=== PATIENT | female | born 1995 | race African-American/Black ===

== ENCOUNTER 2017-07-24 15:19 | Emergency (ER) | payer BC ==
[~2017-07-24] VITALS: Ht 167.6 cm; Wt 60.8 kg
[2017-07-24 15:24] VITALS: Ht 167.6 cm; Wt 60.8 kg
[2017-07-24] MEDS ORDERED: IBUP-103 PO (15:55)
[2017-07-24] MEDS ORDERED: FLUCONAZOLE 100 MG TAB PO SCH (16:15)
[2017-07-24 16:25] LABS: URINE APPEARANCE CLEAR (CLEAR); URINE BILIRUBIN NEG (NEG); URINE COLOR YELLOW; URINE NITRITE NEG (NEG); URINE SPECIFIC GRAVITY 1.026 (1.000-1.030); UROBILINOGEN NEG (NEG); ZZUR CULT IF INDIC CLEAN CATCH NO
[2017-07-24 16:26] LABS: MANUAL MICROSCOPIC REQUIRED? NO; REVIEW REQ? NO
[2017-07-24 17:13] VITALS: BP 112/66; PULSE 71; TEMP 36.7; O2SAT 100
--- NOTE | 2017-07-24 17:30 | EMERGENCY ROOM VISIT NOTE ---
History Report prepared by Yobany: Laney Schmitz Under the Supervision of: Sophie HaneyO. First contact with patient: 15:26 Chief Complaint: OTHER COMPLAINT Stated Complaint: BURNING/ITCHING VAG AREA History of Present Illness The patient is a 22 year old female who presents to the Emergency Room with complaints of constant vaginal discomfort for the past few weeks. She states that in June she developed a white vaginal discharge that has persisted. She also reports vaginal burning and itching. She has had yeast infections in the past and states that this feels like her previous yeast infections. The patient rates her pain as a 6/10 in severity. She is sexually active. Her LNMP was 2 weeks ago. The patient also states, "I think that I am retaining urine." She feels that she is unable to fully empty her bladder and she has had increased urinary frequency. She denies any dysuria. This has been going on since December. She has not followed up with her PCP or a urologist. Pt denies headache, fevers, chest pain, shortness of breath, nausea, vomiting, diarrhea, abdominal pain, and melena. Source of History: patient Onset: a few weeks ago Position: other (vagina) Symptom Intensity: 6/10 Quality: burning, other (itching) Timing: constant Associated Symptoms: + urinary symptoms, No fevers, No headache, No chest pain, No SOB, No nausea, No vomiting, No abdominal pain, No melena, No diarrhea Review of Systems See HPI for pertinent positives & negatives. A total of 10 systems reviewed and were otherwise negative. Past Medical & Surgical Surgical Problems: (1) History of hernia repair Family History Diabetes mellitus FH: cancer Hypertension Social History Smoking Status: Never Smoker Smokeless Tobacco Use: No Alcohol Use: occasionally Marital Status: single Housing Status: lives with roommate Occupation Status: [employer] student Current/Historical Medications Scheduled Ibuprofen Tab (Advil), 400 MG PO PRN UD Allergies Coded Allergies: No Known Allergies (Unverified , 07/24/17) Physical Exam Vital Signs Date Time Temp Pulse Resp B/P (MAP) Pulse Ox O2 Delivery O2 Flow Rate FiO2 07/24/17 17:13 36.7 71 18 112/66 100 07/24/17 15:24 36.7 68 20 129/74 99 Room Air Physical Exam GENERAL: alert, sitting up in bed, well appearing, well nourished, no distress, non-toxic EYE EXAM: normal conjunctiva OROPHARYNX: no exudate, no erythema, lips, buccal mucosa, and tongue normal and mucous membranes are moist NECK: supple, no nuchal rigidity, no adenopathy, non-tender LUNGS: Clear to auscultation. Normal chest wall mechanics HEART: no murmurs, S1 normal and S2 normal ABDOMEN: abdomen soft, non-tender, normo-active bowel sounds, no masses, no rebound or guarding. : Normal external genitalia, thick white discharge, no adnexal tenderness. UPPER EXTREMITIES: upper extremities are grossly normal. LOWER EXTREMITIES: No pitting edema. NEURO EXAM: Normal sensorium, cranial nerves II-XII grossly intact, normal speech, no gross weakness of arms, no gross weakness of legs. Medical Decision & Procedures Laboratory Results Test 07/24/17 15:40 07/24/17 16:10 Urine Color YELLOW Urine Appearance CLEAR (CLEAR) Urine pH 8.0 (4.5-7.5) Urine Specific [place] 1.026 (1.000-1.030) Urine Protein NEG (NEG) Urine Glucose (UA) NEG (NEG) Urine Ketones NEG (NEG) Urine Occult Blood NEG (NEG) Urine Nitrite NEG (NEG) Urine Bilirubin NEG (NEG) Urine Urobilinogen NEG (NEG) Urine Leukocyte Esterase NEG (NEG) Urine WBC (Auto) 1-5 /hpf (0-5) Urine RBC (Auto) 0-4 /hpf (0-4) Urine Hyaline Casts (Auto) 0 /lpf (0-5) Urine Epithelial Cells (Auto) 10-20 /lpf (0-5) Urine Bacteria (Auto) NEG (NEG) Urine Test NEG (NEG) Medications Administered Medications (Trade) Dose Ordered Sig/Magali Route Start Time Stop Time Status Last Admin Dose Admin Fluconazole (Diflucan Tab) 150 mg NOW PO 07/24/17 16:15 09/04/17 16:14 07/24/17 17:08 150 MG ED Course ED COURSE: Vital signs were reviewed and showed normal vitals The patients medical record was reviewed The above diagnostic studies were performed and reviewed. ED treatments and interventions as stated above. 1526: The patient was evaluated in room C12B. A complete history and physical examination was performed. 1606: I performed a pelvic examination at this time. Please see above for my findings. 1615: Diflucan 150 mg PO 1616: Upon reevaluation, the patient is resting comfortably. I discussed my findings with the patient and she understands and agrees with the treatment plan. Based on the patients age, coexisting illnesses, exam and lab findings the decision to treat as an outpatient was made. The patient remained stable while under my care. The patient appeared well at the time of discharge. Medical Decision Differential diagnoses includes but is not limited to appendicitis, diverticulitis, small bowel obstruction, malignancy, hernia, urinary tract infection, torsion, and ectopic , perforation, trauma, infectious. Patient is a 22-year-old female who presents the ER for thick white vaginal discharge she is been present for the past several weeks. She also notes urinary urgency following voiding. She has no dysuria or frequency. Patient does not complaints. No pain. Abdominal exam is completely benign. Pelvic shows a thick white discharge suggesting yeast infection. She was treated with Diflucan. was negative. UA was negative. Patient was updated regards to findings and was discharged to follow-up with S. Discussed with Pt concerning signs and symptoms to watch out for. Pt was instructed to follow up with their PCP and discussed with the patient their option to return to the ED at anytime for persistent or worsening symptoms. The appropriate anticipatory guidance and out-patient management, including indications for return to the emergency department, were explained at length to the patient and understood. Medication Reconcilliation Current Medication List: was personally reviewed by me Blood Pressure Screening Patient's blood pressure: Normal blood pressure Impression Primary Impression: Yeast infection of the vagina Scribe Attestation The scribe's documentation has been prepared under my direction and personally reviewed by me in its entirety. I confirm that the note above accurately reflects all work, treatment, procedures, and medical decision making performed by me. Departure Information Dispostion Home / Self-Care Referrals No Doctor, Assigned (PCP) Forms HOME CARE DOCUMENTATION FORM, IMPORTANT VISIT INFORMATION, WORK / SCHOOL INSTRUCTIONS Patient Instructions My [facility], Vaginitis Teen Additional Instructions Please follow up with [facility] with in the next 24 hours. Any worsening of your symptoms, please return to the ED immediately. This includes any fevers greater than 100.4, worsening pain, abdominal pain, new pelvic discharge, or any other concerning signs or symptoms from your standpoint. Persistent nausea, vomiting, unable to eat or drink, or any other concerning signs or symptoms from your standpoint. Please follow up with [facility] as stated above.
[2017-07-27 03:02] LABS: CHLAMYDIA TRACH RNA*** NOT DETECTED (NOT DETECTED); GC (NEIS GONORRHOEAE)RNA** NOT DETECTED (NOT DETECTED)
== END 2017-07-24 17:14 | disposition home or self-care (01) ==
LOC: C.EDB 15:24 → C.EDA 17:14
DX: B37.9 Candidiasis, unspecified (principal); Z98.890 Other specified postprocedural states; Z83.3 Family history of diabetes mellitus; Z80.9 Family history of malignant neoplasm, unspecified; Z82.49 Family history of ischemic heart disease and other diseases of the circulatory system